=== PATIENT | female | born 1985 | race Caucasian/White ===

== ENCOUNTER 2020-07-03 13:33 | Emergency (ER) | payer OTHER, SELFPAY ==
--- NOTE | ~2020-07-03 | XR_ITS ---
XR femur LT min 2V DATE: 07/03/2020 14:32 INDICATION: Recent injury of proximal left thigh TECHNIQUE: AP and lateral views of left femur COMPARISON: None FINDINGS: No fracture or dislocation, periosteal reaction or bone destruction of the left femur. Norm al alignment at the left hip and knee joints. Minimal osteoarthritic change at the left hip and knee joints. IMPRESSION: Minimal left hip and knee osteoarthritis Reviewed, dictated and finalized at location A. HEALTH NURSE EDUCATOR
[2020-07-03 13:46] VITALS: BP 141/88; PULSE 78; RESP 17; TEMP 36.3; O2SAT 100
[2020-07-03 14:03] LABS: Basophils Percent Auto 0.2 % (0.2-1.2); Eosinophils Absolute Auto 0.3 K/mm3 (0-0.3); Eosinophils Percent Auto 3.5 % (0-4.4); Hematocrit 46.6 % (37.0-47.0); Immature Granulocyte Absolute 0.03 K/mm3 (0.00-0.031); Immature Granulocyte Percent A 0.3 % (0-0.5); Lymphocytes Absolute Auto 2.48 K/mm3 (0.9-3.2); Mean Corpuscular HGB Conc 32.2 g/dl (32-36); Mean Corpuscular Hemoglobin 27.4 pg (26-34); Mean Corpuscular Volume 85.2 fl (80-100); Monocytes Absolute Auto 0.5 K/mm3 (0.1-0.6); Monocytes Percent Auto 5.2 % (2.6-8.5); Neutrophils Absolute Auto 5.8 K/mm3 (1.3-6.7); Neutrophils Percent Auto 63.8 % (45.5-73.1); Platelet Count Result 454 k/mm3 (150-375); Red Blood Count 5.47 M/mm3 (4.2-5.4); Red Cell Distribution Width 14.6 % (11.5-14.5); White Blood Count 9.2 K/mm3 (4.5-10.0)
[2020-07-03 14:15] LABS: Anion Gap 9 mmol/L (8-16); Blood Urea Nitrogen 15 mg/dL (7-17); Calcium 9.6 mg/dL (8.4-10.2); Carbon Dioxide 33 mmol/L (22-30); Chloride 100 mmol/L (98-107); Estimated CRCL calculation 81 ml/min; Estimated Glomerular Filt Rate > 60; Glucose 98 mg/dL (65-105); Potassium 3.6 mmol/L (3.4-5.0); Sodium 142 mmol/L (137-145)
[2020-07-03 14:19] LABS: CRP < 0.5 mg/dL (<1.0)
--- NOTE | 2020-07-03 15:35 | ED.GENADULT ---
HPI - General Adult General Chief complaint: Wound/Laceration Stated complaint: leg infection Time Seen by Provider: 07/03/20 15:26 Source: patient Mode of arrival: ambulatory Limitations: no limitations History of Present Illness HPI narrative: 35-year-old with a history of IV heroin abuse here with complaints of pain and swelling and an ulcer in the left groin area for past few days. Patient states that she did use that site for IV heroin. She denies any fever or chills. Onset (ago): day(s) (6) Location: lower extremity Severity: mild Quality: aching Exacerbating factors: none Associated symptoms: denies other symptoms Review of Systems Review of Systems: All systems reviewed & are unremarkable except as noted in HPI and below Constitutional: Constitutional: Reports no additional constitutional complaints ENT: Reports system reviewed and no additional complaints, except as documented Cardiovascular: Cardiovascular: Reports no additional cardiovascular complaints Respiratory: Respiratory: Reports no additional respiratory complaints Gastrointestinal: Gastrointestinal: Reports no additional gastrointestinal complaints Musculoskeletal: Musculoskeletal: Reports as per HPI [facility] Social History Social History (Updated 07/03/20 @ 15:40 by Brando Renee MD) Substance use type: heroin, opiates and IV drugs Living arrangements: with family Gender identity (if verbalized by the patient): Female Exam Narrative: Exam Narrative: GENERAL: Well-appearing, well-nourished, and in no acute distress. HEAD: Normocephalic, atraumatic. EYES: PERRLA and EOMI.. NECK: Supple. CHEST: Clear to auscultation. No respiratory distress. HEART: Regular rate and rhythm. No murmur heard. Normal peripheral pulses. ABDOMEN: Soft, nontender, nondistended, normal active bowel sounds. EXTREMITIES: Normal range of motion. No edema. Multiple track castro on both upper extremities. A small ulcerated lesion present on the left groin area with no obvious drainage with mild surrounding erythema SKIN: Warm, dry, no rash. NEURO: No focal deficits. Alert and oriented x3. PSYCH: Normal mood and affect. Course Course Emergency Course: Inform patient about her lab work. Advised her to consider detox. Also recommended her to take antibiotic as prescribed Vital Signs Vital signs: Vital Signs Temperature 36.3 C L 07/03/20 13:46 Pulse Rate 78 07/03/20 13:46 Respiratory Rate 17 07/03/20 13:46 Blood Pressure 141/88 H 07/03/20 13:46 Pulse Oximetry 100 07/03/20 13:46 Temperature 36.3 C L 07/03/20 13:46 Pulse Rate 78 07/03/20 13:46 Respiratory Rate 17 07/03/20 13:46 Blood Pressure 141/88 H 07/03/20 13:46 Pulse Oximetry 100 07/03/20 13:46 Medical Decision Making Vital Signs Vital Signs: Vital Signs Temperature 36.3 C L 07/03/20 13:46 Pulse Rate 78 07/03/20 13:46 Respiratory Rate 17 07/03/20 13:46 Blood Pressure 141/88 H 07/03/20 13:46 Pulse Oximetry 100 07/03/20 13:46 Temperature 36.3 C L 07/03/20 13:46 Pulse Rate 78 07/03/20 13:46 Respiratory Rate 17 07/03/20 13:46 Blood Pressure 141/88 H 07/03/20 13:46 Pulse Oximetry 100 07/03/20 13:46 Lab Data Result diagrams: 07/03/20 13:54 07/03/20 13:54 Labs: Lab Results 07/03/20 07/03/20 07/03/20 Range/Units 13:54 13:54 13:54 WBC 9.2 (4.5-10.0) K/mm3 RBC 5.47 H (4.2-5.4) M/mm3 Hgb 15.0 (12.0-15.0) g/dL Hct 46.6 (37.0-47.0) % MCV 85.2 (80-100) fl MCH 27.4 (26-34) pg MCHC 32.2 (32-36) g/dl RDW 14.6 H (11.5-14.5) % Plt Count 454 H (150-375) k/mm3 MPV 9.0 (7.4-10.4) fl Immature Gran % (Auto) 0.3 (0-0.5) % Neut % (Auto) 63.8 (45.5-73.1) % Lymph % (Auto) 27.0 (18.3-44.2) % [place] % (Auto) 5.2 (2.6-8.5) % Eos % (Auto) 3.5 (0-4.4) % Baso % (Auto) 0.2 (0.2-1.2) % Lymph # (Auto) 2.48 (0.9-3.2) K/mm3 [place] # (Auto) 0.5 (0
[2020-07-03 15:45] VITALS: BP 134/65; PULSE 70; RESP 12; O2SAT 99
== END 2020-07-03 15:55 | disposition home or self-care (01) ==
PROVIDERS: Emergency Medicine; Emergency Provider Family Medicine
DX: L03.116 Cellulitis of left lower limb (principal); T80.29XA Infection following other infusion, transfusion and therapeutic injection, initial encounter; F11.10 Opioid abuse, uncomplicated
CPT/HCPCS: 36415; 73552; 80048; 85025; 86140; 99283

== ENCOUNTER 2024-06-06 11:04 | Emergency (ER) | payer OTHER, SELFPAY ==
[2024-06-06 11:10] VITALS: BP 148/84; PULSE 74; RESP 16; TEMP 36.9; O2SAT 100
--- NOTE | 2024-06-06 11:45 | ED_ITS ---
HPI - Back Pain/Injury General Chief Complaint: Back Pain/Injury Stated Complaint: Low Back Pain/Left Side Source: patient Mode of arrival: ambulatory Limitations: no limitations History of Present Illness HPI Narrative: 39 female presented complaint of left lower back pain for 5 days. Denies injury. States the pain at onset would wrap towards the thighs, but that is now better. Also states she could not tolerate standing at onset for about 2 days, which is also better. Not taking anything for symptoms. Denies pain radiating into the hips or legs, numbness, tingling, weakness of the lower extremities, or change in gait, saddle paresthesia or loss of bowel or bladder. Review of Systems Review of Systems: CONSTITUTIONAL: Denies body aches, fever, chills EYES: Denies visual changes CARDIOVASCULAR: Denies chest pain, palpitations, or edema. RESPIRATORY: Denies cough or dyspnea. GASTROINTESTINAL: Denies abdominal pain, nausea, vomiting, or diarrhea. SKIN: Denies rash, itching, or wounds. MUSCULOSKELETAL: reports back pain NEUROLOGIC: Denies headache, numbness, tingling, or weakness. All systems reviewed & are unremarkable except as noted in HPI and below PMFSH Social History Social History Substance use type: heroin, opiates and IV drugs Living arrangements: with family Gender identity (if verbalized by the patient): Female Comments At time of signature, I have reviewed and agree with nursing past medical, surgical, social and family history unless otherwise noted. Please see nursing chart for further information. There is no relevant family history pertinent to the presenting complaint Exam Narrative: GENERAL: Well-appearing, well-nourished, and in no acute distress. CHEST: Speaks in full sentences. No respiratory distress. HEART: Regular rate and rhythm. Normal and equal peripheral pulses. MUSC: No Vertebral point tenderness Or paraspinal tenderness. BLEs with normal strength and sensation, normal range of motion. No ecchymosis, No open wounds; alignment normal, pulse palpable and equal bilaterally, skin warm, dry, pink. Capillary refill less than 3 seconds. Gait steady. SKIN: Warm, dry, no rash. NEURO: Alert and oriented x3. Course Course Emergency Course: Patient is aware of diagnosis, understands and agrees to treatment plan. Anticipatory guidance given. Patient agrees to follow-up as directed and is aware of reasons to seek care at the emergency department. Portions of this record may have been created with voice recognition software Level of Care: Express Care Visit Vital Signs Vital signs: Vital Signs Temperature 98.4 F 06/06/24 11:10 Pulse Rate 74 06/06/24 11:10 Respiratory Rate 16 06/06/24 11:10 Blood Pressure 148/84 H 06/06/24 11:10 Pulse Oximetry 100 06/06/24 11:10 Oxygen Delivery Room Air 06/06/24 11:10 Temperature 98.4 F 06/06/24 11:10 Pulse Rate 74 06/06/24 11:10 Respiratory Rate 16 06/06/24 11:10 Blood Pressure 148/84 H 06/06/24 11:10 Pulse Oximetry 100 06/06/24 11:10 Oxygen Delivery Room Air 06/06/24 11:10 Reviewed MDM - Back Pain/Injury MDM Narrative Medical decision making narrative: discussed physical exam findings. Patient states the pain is improving since onset. No imaging at this time. Reviewed prescriptions. Advised supportive measures and s/s to go to the ER. Pt is stable and appropriate for outpt treatment and follow up with pcp. Differential Diagnosis Differential diagnosis: Likely lumbar radiculopathy, sciatica, strain of lumbar region, renal colic, pyelonephritis and discitis Discharge Plan Discharge Clinical Impression: Low back pain Patient Disposition: Home, Self-Care Condition: Stable Instructions: Antibiotic Form, Acute Low Back Pain (ED) Additional Instructions: Avoid lifting. pushing. pulling, or anything that worsens the pain. Take Motrin along with Tylenol every 8 hours Take muscle relaxers (cyclobenzaprine) every 8 hours as needed for muscle spasm- do not drive or make any important decisions while on this medication for it can make you drowsy. Over the counter pain cream like icy/hot or biofreeze, or Salon pas/lidocaine 4% patch. You may apply heat or cold to the area as needed. Please follow up with your Primary Care Doctor within 48-72 hours - call for an appointment. If you experience any worsening pain, swelling, numbness, weakness please go to ER. Contact your doctor or go to the emergency department if you develop problems with bladder or bowel function, weakness or loss of feeling in one or both of your legs, or any other serious concerns. Prescriptions: New cyclobenzaprine 10 mg tablet 10 mg PO TID PRN (Reason: muscle spasm) Qty: 8 0RF prednisone 50 mg tablet 50 mg PO DAILY Qty: 5 0RF No Action clindamycin HCl 300 mg capsule 300 mg PO TID Qty: 30 0RF Follow-up/Referrals: PHYSICIAN,HYDRO STATION SUPERVISOR [Primary Care Provider] - Stand Alone Forms: Work/School Release IP Time of Disposition: 11:57
== END 2024-06-06 12:00 | disposition home or self-care (01) ==
PROVIDERS: Emergency Provider Nurse Practitioner Family
DX: M54.50 Low back pain, unspecified (principal)
CPT/HCPCS: 99213; G0463

== ENCOUNTER 2025-05-14 14:54 | Emergency (ER) | payer OTHER, SELFPAY ==
--- OUTSIDE RECORDS SUMMARY | 2025-05-14 14:59 | XMS_ITS | Encounter Summary ---
Author Organization [facility] Address [address] [place] [address] Phone Care Team Providers Care Helpdesk Technician Name Role Phone Desmond Louis MD Primary Care Provider [phone] Morgan Baxter MD Unavailable Encounter Details Date Type Department Care Team (Late st Contact Info) Description 06/13/2024 [facility] [address] [place] [id number] Morgan Baxter MD [address] [facility] [address] [place] [address] Social History Tobacco Use Types Packs/Day Years Used Date Smoking Tobacco: Every Day Cigarettes 0.5 18.9 Started: 2006 Smokeless Tobacco: Never Alcohol Use Standard Drinks/Week Comments No 0 (1 standard drink = 0.6 oz pur e alcohol) Sexually Active Control Partners Comments Not Currently Male Comments No Sex and Gender Information Value Date Recorded Sex Assigned at Not on file Legal Sex Female 10:32 PM CDT Gender Identity Not on file Sexual Orientation Not on file documented as of this encounter Plan of Treatment Not on file documented as of this encounter Visit Diagnoses Not on filedocumented in this encounter Additional Health Concerns Assessment Noted Time PHQ-9 Depression Total Score: 0 07/22/19 17 3:04 PM AUTOMATION CONTROLS SPECIALIST documented as of this encounter Care Teams Helpdesk Technician Relationship Specialty Start Date End Date Desmond Louis MD [address] [facility] [address] [place] [address] PCP - General Family Medicine 05/10/24 Morgan Baxter MD [address] [address] Consulting Physician Colon and Rectal Surgery 05/18/24 documented as of this encounter
--- OUTSIDE RECORDS SUMMARY | 2025-05-14 14:59 | XMS_ITS | Clinical Summary ---
[facility] Address [address] [place] [address] Care Team Providers Care Head Stock Transfer Clerk Name Role Phone No, Physician Primary Care Provider [phone] Allergies Active Allergy Reactions Criticality Noted Date Comments Codeine Nausea Only 04/19/2016 Medications sertraline (ZOLOFT) 100 mg tablet take 1 tablet by oral route every day 30 6 01/03/20 15 Active Additional Information Patient not taking.Reported on 03/06/2017 acetaminophen (TYLENOL) 325 mg tablet take 2 Tablet by oral route every 6 hours as needed 0 0 01/24/20 15 Active sertraline (ZOLOFT) 50 mg tablet take 1 tablet by oral route every day 0 0 01/24/20 15 Active Additional Information Patient not taking.Reported on 03/06/2017 topiramate (TOPAMAX) 50 mg tabletIndications: Migraine without aura and without status migrainosus, not intractable TAKE 1 TABLET BY MOUTH 2 TIMES A DAY. 60 tablet 03/10/20 18 Active azithromycin (ZITHROMAX) 250 mg tablet Take 2 tablets the first day, then 1 tablet daily for 4 days 6 tablet 03/16/20 19 Active promethazine-DM (PROMETHAZINE-DM) 1.25-3 mg/mL syrup Take 5 mL by mouth 4 (four) times a day as needed for cough (And runny nose) May substitute with Robitussin DM same amount and directions 118 mL 03/16/20 19 Active ondansetron ODT (ZOFRAN-ODT) 4 mg disintegrating tablet Dissolve 1 tablet oral every 6 hours as needed for nausea. 10 tablet 03/16/20 19 Active escitalopram (LEXAPRO) 5 mg tablet Take 1 tablet (5 mg total) by mouth daily 30 tablet 05/02/20 19 Active ALPRAZolam (XANAX) 0.25 mg tablet Take 1 tablet (0.25 mg total) by mouth 3 (three) times a day as needed for anxiety 10 tablet 05/02/20 19 Active naproxen (ANAPROX DS) 550 mg tabletIndications: Pain Take 1 tablet (550 mg total) by mouth 2 (two) times a day with meals 14 tablet 06/08/20 24 Active cyclobenzaprine (FLEXERIL) 5 mg tablet Take 1 tablet (5 mg total) by mouth 3 (three) times a day as needed for muscle spasms 30 tablet 06/08/20 24 Active Active Problems Problem Noted Date Diagnosed Date Anxiety 05/02/2019 Acute bronchitis 03/16/2019 Acute pharyngitis 03/16/2019 Nausea 03/16/2019 Panic attack 03/25/2016 Overview (10/09/2016): Panic attack Episodic mood disorder 01/23/2015 Overview (10/09/2016): Mood disorder Adiposity 01/23/2015 Overview (10/09/2016): Obesity Splenomegaly 01/11/2015 Overview (10/09/2016): Splenomegaly Cyst of ovary 01/11/2015 Overview (10/09/2016): Ovarian cyst Migraine without aura and wi thout status migrainosus, not intractable 08/30/2012 Overview (10/10/2016): Migraine Surgical History Surgery Date Site/Laterality Comments OTHER SURGICAL HISTORY 2003 : 16 hr labor OTHER SURGICAL HISTORY 2009 : OTHER SURGICAL HISTORY 2009 : SECTION section TUBAL LIGATION 2009 BTL OTHER SURGICAL HISTORY UTI with bacteremia: Home IV abx OTHER SURGICAL HISTORY NICA pap with negative HR HPV: Colposcopy Medical History Medical History Date Comments Hx Other Medical 2003 ; Outc ome: 9 lb(s) 1 oz Male Hx Other Medical 2009 ; Outc ome: 38 week 4 lb(s) 6 oz Male Hx Other Medical 2009 ; Outc ome: 38 week 6 lb(s) 15 oz Female Hx Other Medical Tumor on leg Hx Other Medical Headache, migra ine Hx Other Medical Anxiety Hx Other Medical Large left shou lder lipoma Hx Other Medical 01/11/2015 UTI with bacter emia Hx Other Medical NICA pap with n egative HR HPV Family History Medical History Relation Name Comments Diabetes Daughter Diabetes mellit us; Breast cancer Mother Cancer, breast ; Asthma Son Asthma; Relation Name Status Comments Daughter Mother Son Social History Tobacco Use Types Packs/Day Years Used Date Smoking Tobacco: Every Day Cigarettes Smokeless Tobacco: Never Comments:1/2 pack per week Alcohol Use Standard Drinks/Week Comments No 0 (1 standard drink = 0.6 oz pur e alcohol) Personal Safety Answer Date Recorded Have you ever been in or are you currently in a harmful physical or emotional relationship or is someone making you feel afraid or unsafe? Denies 06/08/2024 Comments No Sex and Gender Information Value Date Recorded Sex Assigned at Not on file Legal Sex Female 5:33 PM POWDER WORKER Gender Identity Not on file Sexual Orientation Not on file Last Filed Vital Signs Vital Sign Reading Time Taken Comments Blood Pressure 147/103 06/08/2024 7:58 AM POWDER WORKER Pulse 57 06/08/2024 7:58 AM POWDER WORKER Temperature 36.4 C (97.6 F) 06/08/2024 7:58 AM POWDER WORKER Respiratory Rate 16 06/08/2024 7:58 AM POWDER WORKER Oxygen Saturation 100% 06/08/2024 7:58 AM POWDER WORKER Inhaled Oxygen Concentration - - Weight 117.9 kg (260 lb) 06/08/2024 7:58 AM POWDER WORKER Height 157.5 cm (5' 2) 06/08/2024 7:58 AM POWDER WORKER Body Mass Index 47.55 06/08/2024 7:58 AM POWDER WORKER Plan of Treatment Health Maintenance Due Date Last Done Comments Breast Cancer Screening-Mammogram 1984 Depression Screening 1984 DTaP/Tdap/Td Vaccine (1 - Tdap) 1995 Varicella Vaccines (1 of 2 - 13+ 2-dose series) 1997 Hepatitis B Screening 2002 Regular Well Visit/Exam 18-64 2002 Pneumococcal vaccine <65 (1 of 2 - PCV) 2003 HPV Vaccines (1 - 3-dose SCDM series) 2011 Cervical Cancer Screening 10/11/2015 10/10/2014 Influenza Vaccine (#1) 2025 Hepatitis C Screening Completed 12/02/2024, 025 Procedures Procedure Name Priority Date/Time Associated Diagnosis Comments HEPATITIS C ANTIBODY Routine 12/02/2024 12:18 PM CDT GENITAL FLUID PAP SMEAR, THIN PREP AND HPV Routine 10/10/2014 7:00 PM CDT from Last 3 Months or Most Recently Relevant to Health Maintenance Results * (ABNORMAL) Hepatitis C antibody Blood (12/02/2024 12:18 PM CDT) Hep C Ab Reactive( A) Nonreactive Comment: Critical result called to and read back [facility] on 12/05/2024 09:55:49 CDT to Kristine Benites. Critical Result Interpretive Data Nonreactive: Antibodies to HCV not detected. Does NOT exclude the possibility of recent exposure to HCV. Equivocal: Equivocal for HCV antibodies. Supplemental molecular testing will be automatically performed to determine infection status in accordance with current CDC screening recommendations. Reactive: Positive for HCV antibodies. This may represent current or past HCV infection. Supplemental molecular testing will be automatically performed to determine current infection status in accordance with current CDC screening recommendations. Interpretive data was last revised on 2019. Testing performed by: [facility], [address] [place] [address]., [id number] Blood 12/02/2024 12:1 8 PM CDT 12/02/2024 4:16 PM CDT Narrative HARVEY PERKINS (DEANN) - 12/05/2024 9:56 AM CDT faxed to [phone] 12/03/2024 13:34:36 CDT [id number] us Vivek Arriola MD LAB MICROBIOLOGY - GENERAL ORD ERABLES Edited Result - Final HARVEY PERKINS (DEANN) [address] [facility] Department [place] [address] * (ABNORMAL) Genital fluid pap smear, thin prep and HPV (10/10/2014 7:00 PM CDT) Clinical information SEE NOTE HISTORICAL RESULTS Comment:Information not prov ided LMP SEE NOTE HISTORICAL RESULTS Comment:[id number] Previous Pap SEE NOTE HISTORI PRIMITIVO RESULTS Comment:INFORMATION NOT PROV IDED Previous biopsy SEE NOTE HIST ORICAL RESULTS Comment:INFORMATION NOT PROV IDED Referral specimen source SEE NOTE HISTORICAL RESULTS Comment:Cervix, Endocervix Statement of adequacy SEE NOTE HISTORICAL RESULTS Comment: Satisfactory for evaluation. Endocervical/transformation zone component present. Referral specimen, interp SEE NOTE(A) HISTORICAL RESULTS Comment:Atypical Glandular C ells Infection SEE NOTE HISTORICAL RESULTS Comment: Shift in vaginal raudel suggestive of bacterial vaginosis. Variable comment SEE NOTE HIS TORICAL RESULTS Comment: This Pap test has been evaluated with computer assisted technology. Minor portions of this case have been reviewed by one or more pathologists. Human papillomavirus RNA, High Risk E6/E7 Not Detected Not Detected HISTORICAL RESULTS Comment: This test was performed using the APTIMA HPV Assay ([employer] This assay detects E6/E7 viral messenger RNA (mRNA) from 14 high-risk HPV types (16,18,31,33,35,39,45,51,52,56,58,59,66,68). Genital 10/10/2014 7:00 PM CDT Narrative HISTORICAL RESULTS - 10/18/2014 2:00 AM CDT Test performed at [address] [address] Director: VIKAS MOLINA MD us Historical Provider LAB CYTOLOGY ORDERABLES F inal Result HISTORICAL RESULTS from Last 3 Months or Most Recently Relevant to Health Maintenance [place] [place] [address] [facility] Care Teams Head Stock Transfer Clerk Relationship Specialty Start Date End Date No, Physician PCP - General 06/08/24
--- OUTSIDE RECORDS SUMMARY | 2025-05-14 14:59 | XMS_ITS | Clinical Summary ---
Author Organization [facility] Address [address] [place] [address] Phone Care Team Providers Care Ethnology Professor Name Role Phone Desmond Louis MD Primary Care Provider Morgan Baxter MD Unavailable Allergies Active Allergy Reactions Criticality Noted Date Comments Codeine Nausea 04/19/2016 Medications SUMAtriptan (IMITREX) 50 MG Tablet Take 1 Tablet by mouth once as needed for Migraine for up to 36 doses. Use as directed. May repeat dose in 2 hours if headache recurs. 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 Migraine headache 07/23/2016 Anxiety 07/23/2016 Long-term current use of hig h risk medication other than anticoagulant 07/23/2016 Morbid obesity due to excess calories 07/23/2016 Family History Medical History Relation Name Comments No Known Problems Brother Diabetes Daughter Bladder cancer Father Breast Cancer Mother No Known Problems Son 1 No Known Problems Son 2 Relation Name Status Comments Brother Alive Daughter Alive Father Mother Alive Son 1 Alive Son 2 Alive Social History Tobacco Use Types Packs/Day Years [...] Sign Reading Time Taken Comments Blood Pressure 118/72 05/18/2024 11:18 AM AUTO PARTS DELIVERY DRIVER Pulse 83 05/18/2024 11:18 AM AUTO PARTS DELIVERY DRIVER Temperature 36.2 C (97.1 F) 05/18/2024 11:18 AM AUTO PARTS DELIVERY DRIVER Respiratory Rate 16 05/18/2024 11:18 AM AUTO PARTS DELIVERY DRIVER Oxygen Saturation 94% 05/18/2024 11:18 AM AUTO PARTS DELIVERY DRIVER Inhaled Oxygen Concentration - - Weight 119.3 kg (263 lb) 05/18/2024 11:18 AM AUTO PARTS DELIVERY DRIVER Height 157.5 cm (5' 2) 05/18/2024 11:18 AM AUTO PARTS DELIVERY DRIVER Body Mass Index 48.1 05/18/2024 11:18 AM AUTO PARTS DELIVERY DRIVER Plan of Treatment Health Maintenance Due Date Last Done Comments Hepatitis C Virus (HCV) Screening 1984 Mammogram 1984 TdaP Immunization 1984 SARS-COV-2 Immunization (#1) 1989 Hepatitis B Immunization (1 of 3 - 19+ 3-dose series) 2003 Pneumococcal Immunization Combined (1 of 2 - PCV) 2003 Human Papillomavirus (HPV) Immunization (1 - Risk 3-dose SCDM series) 2011 Pap Smear 08/14/2019 08/14/2016, 01/03, 10/11/2014, Additional history exists Cervical Cancer Screening (CCS) 10/12/2019 HPV/Cotest 10/12/2019 10/11/2014 Discussion re Starting/Frequency of Mammograms 2024 Influenza Immunization (#1) 2025 Respiratory Syncytial Virus (RSV) Immunization (Adult) (1 - 1-dose 75+ series) 2059 Meningococcal Immunization (ACWY) Aged Out No longer eligible based on patient's age to complete this topic Rotavirus Immunization Aged Out No lo nger eligible based on patient's age to complete this topic Procedures Procedure Name Priority Date/Time Associated Diagnosis Comments PATHOLOGY CYTOLOGY JAVA APPLICATION ENGINEER Routine 01/15/2015 HUMAN PAPILLOMA VIRUS (HPV) Routine 10/11/2014 from Last 3 Months or Most Recently Relevant to Health Maintenance Results * PATHOLOGY CYTOLOGY JAVA APPLICATION ENGINEER (01/15/2015) Specimen of unknown material (specimen) Feroz Rivera MD PATHOLOGY/CYTOLOGY ORDERAB LES Final Result * HUMAN PAPILLOMA VIRUS (HPV) (10/11/2014) Specimen of unknown material (specimen) Feroz Rivera MD LAB SEND OUTS Final Resu lt from Last 3 Months or Most Recently Relevant to Health Maintenance Insurance [place] Care Teams Ethnology Professor Relationship Specialty Start Date End Date Desmond Louis MD #2 [facility] [address] [place] [address] PCP - General Family Medicine 05/10/24 Morgan Baxter MD [address]2 [facility] [address] [place] [address] Consulting Physician Colon and Rectal Surgery 05/18/24
--- NOTE | 2025-05-14 15:00 | ED_ITS ---
HPI - URI/Sore Throat General Chief Complaint: Upper Respiratory Infection Stated Complaint: Runny Nose/Fatiuge/Back Pain Time Seen by Provider: 05/14/25 15:00 Source: patient Mode of arrival: ambulatory Limitations: no limitations History of Present Illness HPI Narrative: Debbie is a 40 year old female patient presenting to the clinic today with c/o cough, runny nose, fatigue, and upper back pain x 3 days. Is requesting work note. Denies fever or chills. Has not taken any medications for her symptoms. Denies any pain currently. Does not wish to have any testing done. Related Data Home Medications ?Medication ?Instructions ?Recorded ?Confirmed ?Last Taken ?Type No Home Medications 05/14/25 05/14/25 U nknown History Allergies Allergy/AdvReac Type Severity Reaction Status Date / Time No Known Allergies Allergy Verified 05/14/25 15:03 Review of Systems Review of Systems: Pertinent positives per HPI. Patient denies any fever, chills, rash, headache, visual changes, dizziness, cough, shortness of breath, chest pain, palpitations, nausea, vomiting, diarrhea, constipation, abdominal pain, or any urinary issues. [facility] Social History Social History Substance use type: heroin, opiates and IV drugs Living arrangements: with family Gender identity (if verbalized by the patient): Female Comments At the time of my signature, I reviewed and agree with the nursing past medical, surgical, social, and family history. There is no relevant family history pertinent to the patient complaint. Exam Narrative: General: Well-developed, well nourished, in no apparent distress Head: Normocephalic, atraumatic Eyes: Pupils equally round and reactive to light bilaterally, EOM intact, sclera and conjunctive clear, no discharge, lids normal Ears: TMs intact and clear, ear canals clear, no drainage, grossly hearing ivis l. Nose: Nares patent, clear nasal discharge, mild inflammation, no sinus tenderness. Mouth: Oral pharynx without lesions or masses, good dentition, MMM. Neck: Supple, trachea midline, no enlargement of anterior or posterior cervical nodes, no thyroid masses or goiter palpable. Cardio: Regular rate and rhythm, s1 and s2 normal, no murmur appreciated. Resp: Clear to auscultation bilaterally, no rhonchi, rales, wheezing or rubs Course Course Emergency Course: Portions of this record may have been created with voice recognition software. Level of Care: Express Care Visit Vital Signs Vital signs: Vital Signs Temperature 36.3 C L 05/14/25 15:02 Pulse Rate 63 05/14/25 15:02 Respiratory Rate 20 05/14/25 15:02 Blood Pressure 134/74 05/14/25 15:02 Pulse Oximetry 100 05/14/25 15:02 Oxygen Delivery Room Air 05/14/25 15:02 Temperature 36.3 C L 05/14/25 15:02 Pulse Rate 63 05/14/25 15:02 Respiratory Rate 20 05/14/25 15:02 Blood Pressure 134/74 05/14/25 15:02 Pulse Oximetry 100 05/14/25 15:02 Oxygen Delivery Room Air 05/14/25 15:02 Vital signs reviewed MDM - URI/Sore Throat MDM Narrative Medical decision making narrative: At the time of visit patient is resting comfortably on the exam table. Patient appears to be nontoxic. C/o cough, runny nose, fatigue, and upper back pain x 3 days. Is requesting work note. Denies fever or chills. Has not taken any medications for her symptoms. Denies any pain currently. Does not wish to have any testing done. On exam patient has TMs intact and clear, clear nasal drainage, oral pharynx normal, heart rates regular rate and rhythm, and lung sounds are clear. Plan: I suspect patient has URI. Patient declined any testing at this time. Is just requesting a work note as she has missed the last 3 days. Supportive m easures were discussed with the patient and they voiced understanding discharge instructions and agrees to treatment plan. Return precautions reviewed Differential Diagnosis Differential diagnosis: Likely upper respiratory infection, otitis media, sinusitis, viral infection, bronchitis, influenza, pharyngitis and other ( COVID) Discharge Plan Discharge Clinical Impression: Upper respiratory infection Qualifiers: URI type: unspecified URI Qualified Code(s): J06.9 - Acute upper respiratory infection, unspecified Patient Disposition: Home Condition: Stable Instructions: Antibiotic Form Additional Instructions: Increase fluids and stay well hydrated May take Tylenol or motrin as directed on bottle for pain/fever May use Flonase 1 spray in each nare daily May take OTC antihistamines such as Zyrtec or Claritin daily as directed on bottle May apply Vicks vapor rub to chest to open sinuses Sinus rinses for congestion Cepacol spray, cough drops, throat lozenges, warm tea with honey/lemon, gargle salt water to soothe throat BRAT diet for diarrhea Clear liquids x 24 hours then advance as tolerated for nausea/vomiting Go to the ED if you develop a worsening in your condition- high fever not controlled by Tylenol or Motrin, dehydration, weakness, lethargy, shortness of breath, or chest pain. Follow up with your PCP in 3-5 days if symptoms persist. Patient Language: Latvian Prescriptions: No Action No Home Medications Follow-up/Referrals: PHYSICIAN,PULP PRESS TENDER [Primary Care Provider, Internal Medicine] Stand Alone Forms: Work/School Release IP Time of Disposition: 15:34 Quality NIHSS Nursing Documentation ED NIHSS nursing documentation: reviewed/agree
[2025-05-14 15:02] VITALS: BP 134/74; PULSE 63; RESP 20; TEMP 36.3; O2SAT 100
== END 2025-05-14 15:43 | disposition home or self-care (01) ==
PROVIDERS: Emergency Provider Nurse Practitioner Family
DX: J06.9 Acute upper respiratory infection, unspecified (principal)
CPT/HCPCS: 99211; G0463